=== PATIENT | male | born 1955 | race Caucasian/White ===

== ENCOUNTER 2021-01-17 10:45 | Day surgery (SDC) | payer OTHER ==
[2021-01-11 10:45] VITALS: BMI 31.1
[2021-01-17] MEDS ORDERED: DEXAMETHASONE SOD PHOSPHATE 4 MG/1 ML VIAL ONE (11:12)
[2021-01-17] MEDS ORDERED: KETOROLAC TROMETHAMINE 30 MG/1 ML VIAL ONE (11:12)
[2021-01-17] MEDS ORDERED: PROPOFOL 20 ML ONE ×2 (11:12)
[2021-01-17] MEDS ORDERED: ONDANSETRON 4 MG/2 ML VIAL ONE (11:12)
[2021-01-17] MEDS ORDERED: MIDAZOLAM HCL 2 MG/2 ML SINGLE DOSE VIAL ONE (11:13)
[2021-01-17] MEDS ORDERED: BUPIVACAINE HCL/PF 0.25% (2.5MG/ML) 10 ML VIAL ONE (11:37)
[2021-01-17] MEDS ORDERED: ONDANSETRON 4 MG/2 ML VIAL IVPUSH PRN (12:05)
[2021-01-17] MEDS ORDERED: oxyCODONE HCL 5 MG TABLET PO PRN ×2 (12:05)
[2021-01-17] MEDS ORDERED: LACTATED RINGERS SOLUTION 1,000 ML IV SCH (12:15)
[2021-01-17] MEDS ORDERED: BUPIVACAINE HCL/PF 0.25% (2.5MG/ML) 10 ML VIAL IJ ONE (13:30)
[2021-01-17 15:16] VITALS: BP 128/81; PULSE 64; TEMP 98
== END 2021-01-17 15:18 | disposition home or self-care (01) ==
LOC: FASU 10:45
PROVIDERS: ATTEND Orthopaedic Surgery Hand Surgery
PROC: 01N40ZZ Release Ulnar Nerve, Open Approach (ICD-10-PCS; principal; 2021-01-17 12:41)
DX: G56.21 Lesion of ulnar nerve, right upper limb (principal)
CPT/HCPCS: 94760